=== PATIENT | male | born 1960 | race Caucasian/White ===

== ENCOUNTER 2016-09-27 17:53 | Emergency (ER) | payer MEDICARE ==
[~2016-09-27 17:53] MED LIST: ACET500CAP PO; ACIPHEX PO; ASA5GR PO; BENADRYL 50 MG50 MG PO; C1 PO; CAP25 PO; CAP50 PO; CELEXA20 PO; CORDARONE PO; COREG12 PO; COREG25 PO; COREG6 PO; COUMADIN10 MG PO; COUMADIN3 MG PO; CRESTOR40 MG PO; DEMA100 PO; DEMA10T PO; DIOVAN40 MG PO; DURA100 TOP; GOODY'S EX-STR1 EAC1 PO; JANTOVEN10 MG PO; JANTOVEN4 MG PO; LEVEMIR SC; LEXAPRO20 PO; LOVAZA1 GM PO; MELATONIN5 M1 PO; NEXIUM40 PO; NITROSTAT0.4 MG SL; NORCO1 TAB PO; NOVOLOG SC; NOVOLOG SSI; PR25 PO; TESTIM1 % TOP; TRAZODONE150 MG PO; TRICOR PO; TRICOR145 PO; TRILIPIX135 MG PO; ZANAFLEX 4 MG TA4 MG PO; ZENPEP5000 UNIT PO; ZOL100 PO
[2016-09-27 18:16] LABS: BASOPHILS 0.3 %; BASOPHILS ABSOLUTE 0.04 10/3/uL (0.0-0.16); EOSINOPHILS 2.2 %; EOSINOPHILS ABSOLUTE 0.26 10/3/uL (0.0-0.53); HEMATOCRIT 46.7 % (40.0-51.0); HEMOGLOBIN 16.6 g/dL (13.6-17.8); IMMATURE GRANULOCYTES 0.3 %; IMMATURE GRANULOCYTES ABSOLUTE 0.04 10/3/uL (0.0-0.11); LYMPHOCYTES ABSOLUTE 2.57 10/3/uL (0.67-4.30); MEAN CORPUS HGB CONC 35.5 g/dL (32.0-36.0); MEAN CORPUSCULAR HEMOGLOB 33.7 pg (26.0-34.0); MEAN PLATELET VOLUME 10.1 fL (9.2-13.0); MONOCYTES 7.3 %; MONOCYTES ABSOLUTE 0.85 10/3/uL (0.21-1.20); NEUTROPHILS 67.9 %; NEUTROPHILS ABSOLUTE 7.94 10/3/uL (2.02-8.40); PLATELET COUNT 190 10/3/uL (150-400); RBC DISTRIBUTION WIDTH 13.3 % (12.0-16.0); RED CELL COUNT 4.92 10/6/uL (4.7-6.1)
[2016-09-27 18:31] LABS: ER CBC TAT 0 Hrs 23 Mins; MANUAL DIFF NO %; MEAN CORPUSCULAR VOLUME 94.9 fL (80-100); WHITE BLOOD CELLS 11.7 10/3/uL (4.5-10.5)
[2016-09-27 18:34] LABS: BUN (BLOOD UREA NITROGEN) 24 MG/DL (6-23); CALCIUM, SERUM 8.6 MG/DL (8.5-10.4); CHEST PAIN PROFILE TAT 0 Hrs 26 Mins; CHLORIDE, SERUM 100 MMOL/L (96-112); CREATININE 0.97 MG/DL (0.70-1.30); GFR AFRICAN AMERICAN 101 ML/MIN (>=60); GFR NON AFRICAN AMERICAN 88 ML/MIN (>=60); POTASSIUM, SERUM 3.9 MMOL/L (3.5-5.3); SODIUM, SERUM 138 MMOL/L (135-148); TROPONIN I 0.03 NG/ML (<0.05)
[2016-09-27 18:35] LABS: CO2 (CARBON DIOXIDE) 32 MMOL/L (24-34); GLUCOSE, SERUM 217 MG/DL (60-99)
[2016-09-27 18:45] LABS: INTERNATIONAL NORMAL RATI 2.4 UNITS (-); PARTIAL THROMBO TIME 33.7 SEC (22.5-37.2); PROTIME (NOT ORD) 25.7 SEC (12.0-14.5)
== END 2016-09-27 20:03 | disposition home or self-care (01) ==
LOC: ER 17:53
PROVIDERS: Hospitalist
DX: R07.81 Pleurodynia (principal); R06.02 Shortness of breath; R05 Cough; I50.9 Heart failure, unspecified; Z88.5 Allergy status to narcotic agent; Z88.8 Allergy status to other drugs, medicaments and biological substances; Z79.4 Long term (current) use of insulin; Z79.01 Long term (current) use of anticoagulants; Z79.82 Long term (current) use of aspirin; Z79.899 Other long term (current) drug therapy; Z95.0 Presence of cardiac pacemaker
CPT/HCPCS: 71020; 80048; 83735; 83880; 84484; 85025; 85610; 85730; 93005; 99285; A9270-GY